=== PATIENT | male | born 1970 | race Caucasian/White ===

== ENCOUNTER 2017-04-17 04:36 | Emergency (ER) | payer SELFPAY ==
[~2017-04-17] VITALS: Ht 180.3 cm; Wt 82.7 kg
[2017-04-17 05:48] LABS: ALBUMIN 4.7 g/dL (3.2-4.8); CHLORIDE 104 mEq/L (99-109); POTASSIUM 3.9 mEq/L (3.7-5.4); SODIUM 136 mEq/L (136-147)
[2017-04-17 05:50] LABS: GLUCOSE 122 mg/dL (70-99); TOTAL PROTEIN 8.1 g/dL (6.4-8.3)
[2017-04-17 05:52] LABS: HEMATOCRIT 47.8 % (38.0-50.0); HEMOGLOBIN 17.1 G/DL (12.5-16.6); MCH 34.1 PG (29.0-34.0); MCHC 35.8 G/DL (30.0-36.0); MCV 95.4 FL (86-99); PLATELET COUNT 151 K/uL (156-360); RBC DIS.WIDTH-CV 12.7 % (11.8-14.6); RBC DIS.WIDTH-SD 44.8 % (39-53); RED BLOOD COUNT 5.01 M/uL (4.00-5.50); TOTAL BILIRUBIN 2.2 mg/dL (0.0-1.0)
[2017-04-17 05:54] LABS: ALKALINE PHOSPHATASE 83 IU/L (3-129); CREATININE 1.1 mg/dL (0.6-1.3); GFR ESTIMATE (CALCULATED) > 59 mL/min/ (58.99-99999)
[2017-04-17 05:55] LABS: UREA NITROGEN (BUN) 15 mg/dL (9-23)
[2017-04-17 05:56] LABS: AST (GOT) 33 IU/L (2-34)
[2017-04-17 05:57] LABS: ALT (GPT) 40 IU/L (3-49); LIPASE 22 U/L (1.0-51.0)
[2017-04-17] MEDS ORDERED: ZOFRAN4 MG PO (06:15)
[2017-04-17] MEDS ORDERED: BENTYL20 MG PO (06:15)
[2017-04-17] MEDS ORDERED: ANTI-DIARRHEA2 MG PO (06:15)
[2017-04-17 07:40] VITALS: BP 128/88
== END 2017-04-17 07:42 | disposition home or self-care (01) ==
LOC: EME 04:36
PROVIDERS: Emergency Medicine
DX: B34.9 Viral infection, unspecified (principal); E86.0 Dehydration
CPT/HCPCS: 80053; 81003; 83605; 83690; 85027; 99281; 99285; J2765; J7030